=== PATIENT | male | born 1990 | race Caucasian/White ===

== ENCOUNTER 2018-05-12 19:59 | Emergency (ER) | payer SELFPAY ==
[2018-05-12] MEDS ORDERED: RANITIDINE HCL 150 MG TABLET (FP) PO ONE (20:47)
[2018-05-12] MEDS ORDERED: diphenhydrAMINE HCL 25 MG CAPSULE (FP) PO ONE ×2 (20:47→22:13)
[2018-05-12] MEDS ORDERED: predniSONE 20 MG TABLET (UD) PO ONE (20:47)
--- NOTE | 2018-05-12 20:47 | PDOC ---
Rapid Medical Evaluation Medical Evaluation: I have performed a brief in-person evaluation of this patient. The patient presents with a chief complaint of: c/o hives along whole body x 2 days; took 1 Benadryl yesterday; denies taking any new meds/food/recent travel Pertinent physical exam findings: In NAD, +urticarial rash I have ordered the following: Benadryl, Pepcid, Prednisone The patient will proceed to the ED for further evaluation. 05/12/18 20:45
[2018-05-12 20:48] VITALS: BP 133/67; PULSE 79; TEMP 98; BMI 28.0
[2018-05-12] MEDS ORDERED: RANITIDINE HCL 150 MG TABLET (FP) ONE (22:13)
[2018-05-12] MEDS ORDERED: predniSONE 20 MG TABLET (UD) ONE (22:13)
--- NOTE | 2018-05-13 00:32 | PDOC ---
History of Present Illness - General Chief Complaint: Rash Stated Complaint: RASH Time Seen by Provider: 05/12/18 20:49 Past History - Past Medical History Allergies/Adverse Reactions: Allergies Allergy/AdvReac Type Severity Reaction Status Date / Time No Known Allergies Allergy Verified 05/12/18 20:48 Home Medications: Ambulatory Orders Diphenhydramine [Benadryl Capsule -] 50 mg PO Q8H PRN #20 capsule MDD 3 Methylprednisolone [Medrol Dose Faraz] 4 mg PO ASDIR #21 tablet 05/13/18 COPD: No - Suicide/Smoking/Psychosocial Hx Smoking History: Never smoked Have you smoked in the past 12 months: No Information on smoking cessation initiated: No Hx Alcohol Use: No Drug/Substance Use Hx: No *Physical Exam - Vital Signs Last Vital Signs Temp Pulse Resp BP Pulse Ox 98.0 F 79 16 133/67 100 05/12/18 20:46 05/12/18 20:46 05/12/18 20:46 05/12/18 20:46 05/12/18 20:46 Moderate Sedation - Procedure Monitoring Vital Signs: Procedure Monitoring Vital Signs Temperature 98.0 F 05/12/18 20:46 Pulse Rate 79 05/12/18 20:46 Respiratory Rate 16 05/12/18 20:46 Blood Pressure 133/67 05/12/18 20:46 O2 Sat by Pulse Oximetry (%) 100 05/12/18 20:46 ED Treatment Course - Medications Given in the ED: ED Medications Discontinued Medications Generic Name Dose Route Start Last Admin Trade Name Freq PRN Reason Stop Dose Admin Diphenhydramine HCl 50 mg 05/12/18 20:47 05/12/18 22:22 Benadryl - PO 05/12/18 20:48 50 mg ONCE ONE Administration Prednisone 60 mg 05/12/18 20:47 05/12/18 22:22 Deltasone - PO 05/12/18 20:48 60 mg ONCE ONE Administration Ranitidine HCl 150 mg 05/12/18 20:47 05/12/18 22:22 Zantac - PO 05/12/18 20:48 150 mg ONCE ONE Administration Medical Decision Making - Medical Decision Making 05/13/18 00:55 27-year-old male with 2 days of rash/hives with no airway involvement Patient improved after Benadryl Zantac and prednisone given in the emergency department He will be discharged on Benadryl and a Medrol Dosepak with outpatient primary care referral *DC/Admit/Observation/Transfer Diagnosis at time of Disposition: Hives - Discharge Dispostion Disposition: HOME Condition at time of disposition: Stable Decision to Admit order: No - Prescriptions Prescriptions: Diphenhydramine [Benadryl Capsule -] 50 mg PO Q8H PRN #20 capsule MDD 3 PRN Reason: rash or itching Methylprednisolone [Medrol Dose Faraz] 4 mg PO ASDIR #21 tablet - Referrals Referrals: [facility] [place] [Provider Group] - Patient Instructions Printed Discharge Instructions: DI for Hives, DI for General Allergic Reactions Print Language: MEXICAN - Post Discharge Activity - Attestations Physician Attestion: 05/13/18 00:41 I, Dr Mary Alice Lacey, attest that this document has been prepared under my direction and personally reviewed by me in its entirety. I further attest, that it accurately reflects all work, procedures and medical decision making performed by me.
[2018-05-13] MEDS ORDERED: DEXAMETHASONE SOD PHOSPHATE 10 MG/1 ML VIAL IM ONE (00:36)
[2018-05-13] MEDS ORDERED: DEXAMETHASONE SOD PHOSPHATE 10 MG/1 ML VIAL ONE (01:04)
== END 2018-05-13 01:22 | disposition home or self-care (01) ==
LOC: JERFT 19:59 → JER 19:59
PROC: 3E0233Z Introduction of Anti-inflammatory into Muscle, Percutaneous Approach (ICD-10-PCS; principal; 2018-05-12)
DX: L50.9 Urticaria, unspecified (principal)
CPT/HCPCS: 99281-25; J1100